=== PATIENT | female | born 1985 | race Two or more races ===

== ENCOUNTER → 2017-09-06 | Outpatient (CLI) | payer MEDICAID ==
--- NOTE | 2017-09-06 16:33 | WOMENS IMAGING REPORT ---
EXAM DESCRIPTION: BILAT DIAGNOSTIC MAMMO W/CAD; U/S BREAST UNILATERAL, COMPL COMPLETED DATE/TIME: 09/06/2017 10:09 am; 09/06/2017 10:51 am REASON FOR STUDY: LEFT BREAST LUMP; LT BREAST N63 N63.20 UNSPECIFIED LUMP IN THE LEFT BREAST, UNSPE CIFIED QUAD COMPARISON: None. TECHNIQUE: Standard craniocaudal and mediolateral oblique views of each breast recorded using digita l acquisition. Additional left breast 90 mediolateral view. Left breast cone compression in the CC and MLO orienta tions. Left breast ultrasound was also performed. LIMITATIONS: None. FINDINGS: RIGHT BREAST MASSES: No suspicious masses. CALCIFICATIONS: No new or suspicious calcifications. ARCHITECTURAL DISTORTION: None. DEVELOPING DENSITY: None. ASYMMETRY: None noted. OTHER: No other significant findings. LEFT BREAST MASSES: No suspicious masses. CALCIFICATIONS: No new or suspicious calcifications. ARCHITECTURAL DISTORTION: None. DEVELOPING DENSITY: None. ASYMMETRY: None noted. OTHER: No other significant finding. Read with the assistance of CAD: .[facility] - R2 Cenova Version 1.3 .[facility] Imaging - R2 Cenova Version 1.3 .[facility] - R2 Cenova Version 2.4 [place] [place]2 Cenova Version 2.4 .[facility] - R2 Conservator Artifacts Version 9.2 Left breast ultrasound: Ultrasound in the area of palpable abnormality demonstrates a 3 to 4 mm cyst at the 1 to 2 o'clock po sition. There are also 2 areas of increased echogenicity in the subcutaneous fat likely small lipoma is in the area of palpable abnormality. These measure 1.4 cm and 1.2 cm in size. No other significant findings in the left breast. No solid masses. No worrisome acoustic absorption . IMPRESSION: No mammographic evidence for malignancy right breast. No mammographic or sonographic evidence for malignancy left breast BREAST DENSITY: b. There are scattered areas of fibroglandular density. BIRAD: 2 Benign findings. RECOMMENDATION: RECOMMENDED FOLLOW UP: Patient should begin screening mammography/ tomosynthesis at age 40. Begin screening sooner if found to be at increased lifetime risk of breast cancer using the Caridad model SPECIFIC INTERVENTION/IMAGING/CONSULTATION RECOMMENDED:No additional intervention/ imaging/consultati on needed at this time. COMMUNICATION:Patient notified by letter COMMENT: The patient has been notified of the results by letter per SA requirements. Additional no tification policies are in place for contacting patient with suspicious or incomplete findings. Quality ID #[id number]: The [employer] recommends an annual screening mammogram for women aged 40 years or over. This facility utilizes a reminder system to ensure that all patients receive reminder letters, and/or direct phone calls for appointments. This includes reminders for routine scr eening mammograms, diagnostic mammograms, or other Breast Imaging Interventions when appropriate. Th is patient will be placed in the appropriate reminder system. The [employer] (ACR) has developed recommendations for screening MRI of the breast s in certain patient populations, to be used in conjunction with mammography. Breast MRI surveillanc e may be appropriate for women with more than 20% lifetime risk of developing breast cancer as deter mined by genetic testing, significant family history of the disease, or history of mantle radiation f or Hodgkins Disease. ACR Practice Guidelines 2008. TECHNICAL DOCUMENTATION: FINDING NUMBER: (1) ASSESSMENT: (1) JOB ID: [id number] [employer]- All Rights Reserved Reading location - IP/workstation name: [facility]
--- NOTE | 2017-09-06 16:33 | WOMENS IMAGING REPORT ---
EXAM DESCRIPTION: BILAT DIAGNOSTIC MAMMO W/CAD; U/S BREAST UNILATERAL, COMPL COMPLETED DATE/TIME: 09/06/2017 10:09 am; 09/06/2017 10:51 am REASON FOR STUDY: LEFT BREAST LUMP; LT BREAST N63 N63.20 UNSPECIFIED LUMP IN THE LEFT BREAST, UNSPE CIFIED QUAD COMPARISON: None. TECHNIQUE: Standard craniocaudal and mediolateral oblique views of each breast recorded using digita l acquisition. Additional left breast 90 mediolateral view. Left breast cone compression in the CC and MLO orienta tions. Left breast ultrasound was also performed. LIMITATIONS: None. FINDINGS: RIGHT BREAST MASSES: No suspicious masses. CALCIFICATIONS: No new or suspicious calcifications. ARCHITECTURAL DISTORTION: None. DEVELOPING DENSITY: None. ASYMMETRY: None noted. OTHER: No other significant findings. LEFT BREAST MASSES: No suspicious masses. CALCIFICATIONS: No new or suspicious calcifications. ARCHITECTURAL DISTORTION: None. DEVELOPING DENSITY: None. ASYMMETRY: None noted. OTHER: No other significant finding. Read with the assistance of CAD: .[facility] - R2 Cenova Version 1.3 .[facility] Imaging - R2 Cenova Version 1.3 .[facility] Imaging - R2 Cenova Version 2.4 .[facility] [place] R2 Cenova Version 2.4 .[facility] - R2 Bullet Lubricant Mixer Version 9.2 Left breast ultrasound: Ultrasound in the area of palpable abnormality demonstrates a 3 to 4 mm cyst at the 1 to 2 o'clock po sition. There are also 2 areas of increased echogenicity in the subcutaneous fat likely small lipoma is in the area of palpable abnormality. These measure 1.4 cm and 1.2 cm in size. No other significant findings in the left breast. No solid masses. No worrisome acoustic absorption . IMPRESSION: No mammographic evidence for malignancy right breast. No mammographic or sonographic evidence for malignancy left breast BREAST DENSITY: b. There are scattered areas of fibroglandular density. BIRAD: 2 Benign findings. RECOMMENDATION: RECOMMENDED FOLLOW UP: Patient should begin screening mammography/ tomosynthesis at age 40. Begin screening sooner if found to be at increased lifetime risk of breast cancer using the Caridad model SPECIFIC INTERVENTION/IMAGING/CONSULTATION RECOMMENDED:No additional intervention/ imaging/consultati on needed at this time. COMMUNICATION:Patient notified by letter COMMENT: The patient has been notified of the results by letter per SA requirements. Additional no tification policies are in place for contacting patient with suspicious or incomplete findings. Quality ID #[id number]: The [employer] recommends an annual screening mammogram for women aged 40 years or over. This facility utilizes a reminder system to ensure that all patients receive reminder letters, and/or direct phone calls for appointments. This includes reminders for routine scr eening mammograms, diagnostic mammograms, or other Breast Imaging Interventions when appropriate. Th is patient will be placed in the appropriate reminder system. The [employer] (ACR) has developed recommendations for screening MRI of the breast s in certain patient populations, to be used in conjunction with mammography. Breast MRI surveillanc e may be appropriate for women with more than 20% lifetime risk of developing breast cancer as deter mined by genetic testing, significant family history of the disease, or history of mantle radiation f or Hodgkins Disease. ACR Practice Guidelines 2008. TECHNICAL DOCUMENTATION: FINDING NUMBER: (1) ASSESSMENT: (1) JOB ID: [id number] [employer]- All Rights Reserved Reading location - IP/workstation name: [facility]
== END ==
LOC: WI 09:55
PROVIDERS: ATTEND Nurse Practitioner Family
DX: Z12.31 Encounter for screening mammogram for malignant neoplasm of breast (principal); N63.20 Unspecified lump in the left breast, unspecified quadrant
CPT/HCPCS: 76641; 77066

== ENCOUNTER 2019-05-17 11:56 | Emergency (ER) | payer MEDICAID ==
[2019-05-17 12:07] VITALS: BP 103/52
[2019-05-17] MEDS ORDERED: PSEUDOEPHEDRINE HCL 30 MG TABLET PO ONE (12:42)
[2019-05-17] MEDS ORDERED: GUAIFENESIN 600 MG TABLET.SA PO ONE (12:42)
[2019-05-17] MEDS ORDERED: LORATADINE 10 MG TABLET PO ONE (12:42)
--- NOTE | 2019-05-17 12:44 | ER Document Report ---
ED ENT - General Chief Complaint: Sinus Pain Stated Complaint: POSSIBLE SINUS INFECTION Time Seen by Provider: 05/17/19 12:39 Primary Care Provider: EUGENIA MURPHY FNP [Primary Care Provider] - Follow up as needed TRAVEL OUTSIDE OF THE [place] IN LAST 30 DAYS: No - Related Data Allergies/Adverse Reactions: codeine Allergy (Verified 05/17/19 12:39) Past Medical History - General Information source: Patient - Social History Smoking Status: Current Every Day Smoker Cigarette use (# per day): Yes - 2 to 3 cigarettes a day Smoking Education Provided: Yes - 4 minutes Frequency of alcohol use: None Drug Abuse: None Occupation: Mom Lives with: Family Family History: Reviewed & Not Pertinent Patient has suicidal ideation: No Patient has homicidal ideation: No - Past Medical History Cardiac Medical History: Reports: None Pulmonary Medical History: Reports: None EENT Medical History: Reports: None Neurological Medical History: Reports: None Endocrine Medical History: Reports: None Renal/ Medical History: Reports: None Malignancy Medical History: Reports: None GI Medical History: Reports: None Musculoskeletal Medical History: Reports None Skin Medical History: Reports None Psychiatric Medical History: Reports: None Traumatic Medical History: Reports: None Past Surgical History: Reports: Hx Nose Surgery - Septoplasty, Hx Tonsillectomy - Immunizations Immunizations up to date: Yes Hx Diphtheria, Pertussis, Tetanus Vaccination: Yes - 2018 History of Influenza Vaccine for 02/2019 - 07/2019 Season: No Review of Systems - Review of Systems Constitutional: No symptoms reported EENT: Ear pain, Nose congestion, Nose discharge, Sinus pressure, Sinus discharge Cardiovascular: No symptoms reported Respiratory: No symptoms reported Gastrointestinal: No symptoms reported Genitourinary: No symptoms reported Female Genitourinary: No symptoms reported Musculoskeletal: No symptoms reported Skin: No symptoms reported Hematologic/Lymphatic: No symptoms reported Neurological/Psychological: No symptoms reported -: Yes All other systems reviewed and negative Physical Exam - Vital signs Vitals: Temp Pulse Resp BP Pulse Ox 98.4 F 72 18 103/52 L 98 05/17/19 12:06 05/17/19 12:06 05/17/19 12:06 05/17/19 12:06 05/17/19 12:06 Interpretation: Normal - General General appearance: Appears well, Alert - HEENT Head: Normocephalic, Atraumatic Eyes: Normal Pupils: PERRL Ears: Normal External canal: Normal Tympanic membrane: Normal Sinus: Normal Nasal: Swelling Mouth/Lips: Normal Mucous membranes: Normal Pharynx: Post nasal drainage Neck: Normal - Respiratory Respiratory status: No respiratory distress Chest status: Nontender Breath sounds: Normal Chest palpation: Normal - Cardiovascular Rhythm: Regular Heart sounds: Normal auscultation Murmur: No - Abdominal Inspection: Normal Distension: No distension Bowel sounds: Normal Tenderness: Nontender Organomegaly: No organomegaly - Back Back: Normal, Nontender - Extremities General upper extremity: Normal inspection, Nontender, Normal color, Normal ROM, Normal temperature General lower extremity: Normal inspection, Nontender, Normal color, Normal ROM, Normal temperature, Normal weight bearing. No: Sanjiv's sign - Neurological Neuro grossly intact: Yes Cognition: Normal Orientation: AAOx4 Thuy Coma Scale Eye Opening: Spontaneous Thuy Coma Scale Verbal: Oriented Thuy Coma Scale Motor: Obeys Commands Thuy Coma Scale Total: 15 Speech: Normal Motor strength normal: LUE, RUE, LLE, RLE Sensory: Normal - Psychological Associated symptoms: Normal affect, Normal mood - Skin Skin Temperature: Warm Skin Moisture: Dry Skin Color: Normal Course - Re-evaluation Re-evalutation: 05/17/19 12:45 After performing a Medical Screening Examination, I estimate there is LOW risk for ACUTE CORONARY SYNDROME, RESPIRATORY FAILURE, SEPSIS OR MENINGITIS, thus I consider the discharge disposition reasonable. I have reevaluated this patient multiple times and no significant life threatening changes are noted. The patient and I have discussed the diagnosis and risks, and we agree with discharging home with close follow-up. We also discussed returning to the Emergency Department immediately if new or worsening symptoms occur. We have discussed the symptoms which are most concerning (e.g., changing or worsening pain, trouble swallowing or breathing, neck stiffness, fever) that necessitate immediate return. - Vital Signs Vital signs: Temp Pulse Resp BP Pulse Ox 98.4 F 72 18 103/52 L 98 05/17/19 12:06 05/17/19 12:06 05/17/19 12:06 05/17/19 12:06 05/17/19 12:06 Discharge - Discharge Clinical Impression: URI (upper respiratory infection) Qualifiers: URI type: unspecified viral URI Qualified Code(s): J06.9 - Acute upper respiratory infection, unspecified Condition: Stable Disposition: HOME, SELF-CARE Additional Instructions: UPPER RESPIRATORY ILLNESS: You have a viral infection of the respiratory passages -- a "cold." This common infection causes nasal congestion, drainage, and often sore throat and cough. It is highly contagious. The disease usually lasts about 10 to 14 days. There is no "cure" for the viral infection -- it must run its course. If there is a complication, such as bacterial infection in the nose, sinuses, middle ear, or bronchial tubes, antibiotics may be required. The antibiotics won't affect the virus. Drink plenty of fluids. A humidifier may help. An expectorant medication or decongestant may make you more comfortable. Use acetaminophen or ibuprofen for fever or aches. See the doctor if fever persists over two days, if there is any significant worsening of your symptoms, or if you simply fail to improve as expected. You were treated with Claritin 10 mg Sudafed 30 mg and you have been taken Mucinex 600 mg. These are all pxjq-kfb-yrcolqz medications for cough cold congestion. You do need to call the go to the pharmacist to get the Sudafed from behind the counter please get a little red pills they are more effective. He could also use Flonase which is olum-wij-njomsus 1 spray each nostril twice a day. He could also use salt soda solution gargles. These will help to remove the drainage from the back your throat. Chloraseptic spray was htsu-fjl-bivjwqn that will also help with your sore throat. Salt and soda solution gargle 1 quart of water 1 tablespoon of salt 1 teaspoon of baking soda Mixed 3 ingredients together and boil for 1 minute Placed in a covered quart jar Use 1/2 ounce of cold solution to gargle 3 times a day COUGH-SUPPRESSANT & EXPECTORANT MEDICATION: You are to use a cough medication as needed for relief of symptoms. This medicine is a combination of an expectorant (to make the mucous thinner and more easily "coughed up") and a cough suppressant (to reduce the frequency of coughing). The cough-suppressant medicine is related to narcotics. You may experience mild nausea and sleepiness. Some patients who are very sensitive to narcotics may have stomach pain from this medicine. Taking the medicine with food reduces these side effects. Do not drive or work with machinery until you know how this medicine affects you. The expectorant should have no side effects. Iodine-containing expectorants (such as organidin) should not be taken by persons with active thyroid disease unless approved by your doctor. Call the doctor if you develop shortness of breath, hives, rash, itching, lightheadedness, or severe nausea and vomiting. USE OF ACETAMINOPHEN (Tylenol): Acetaminophen may be taken for pain relief or fever control. It's much safer than aspirin, offering a wider range of "safe" dosages. It is safe during . Some brand names are Tylenol, Panadol, Datril, Anacin 3, Tempra, and Liquiprin. Acetaminophen can be repeated every four hours. The following are maximum recommended dosages: >89 pounds or adults 650 mg to 900 mg Acetaminophen can be repeated every four hours. Maximum dose not to exceed 4000 mg a day. SMOKING: If you smoke, you should stop smoking. The tar and chemicals in cigarette smoke are harmful. Smoking has been shown to cause: emphysema chronic bronchitis lung cancer mouth and throat cancer stomach and pancreas cancer premature aging defects In addition, smoking increases ear and lung infections in children of smokers. FOLLOW-UP CARE: If you have been referred to a physician for follow-up care, call the physicians office for an appointment as you were instructed or within the next two days. If you experience worsening or a significant change in your symptoms, notify the physician immediately or return to the Emergency Department at any time for re-evaluation. Forms: Smoking Cessation Education Referrals: EUGENIA MURPHY FNP [Primary Care Provider] - Follow up in 3-5 days
== END 2019-05-17 12:49 | disposition home or self-care (01) ==
LOC: ER 11:56
DX: J06.9 Acute upper respiratory infection, unspecified (principal); B97.89 Other viral agents as the cause of diseases classified elsewhere; J34.89 Other specified disorders of nose and nasal sinuses; R09.81 Nasal congestion; R09.82 Postnasal drip; H92.09 Otalgia, unspecified ear; F17.210 Nicotine dependence, cigarettes, uncomplicated; Z71.6 Tobacco abuse counseling; Z88.0 Allergy status to penicillin
CPT/HCPCS: 99406; 99282; J3490 ×2

== ENCOUNTER 2019-07-26 07:41 | Emergency (ER) | payer MEDICAID ==
[2019-07-26] MEDS ORDERED: PREDNISONE 20 MG TABLET PO ONE (10:27)
[2019-07-26] MEDS ORDERED: BENZONATATE 100 MG CAPSULE PO ONE (10:27)
[2019-07-26] MEDS ORDERED: AZITHROMYCIN 250 MG TABLET PO ONE (10:27)
--- NOTE | 2019-07-26 11:12 | ER Document Report ---
Entered by AGUSTINA SANCHEZ SCRIBE 07/26/19 1024 Acting as scribe for:PETRA BENITO MD ED General - General Chief Complaint: Sore Throat Stated Complaint: CONGESTION Time Seen by Provider: 07/26/19 10:03 Information source: Patient Notes: 33-year-old female presents to the emergency department with cold symptoms that began a couple weeks ago. Patient reports cough, congestion, green/yellow sputum, vomiting, headache, and left ear pain. Patient states that her symptoms are worse with laying down. TRAVEL OUTSIDE OF THE [place] IN LAST 30 DAYS: No - Related Data Allergies/Adverse Reactions: codeine Allergy (Verified 07/26/19 08:34) Past Medical History - General Information source: Patient - Social History Smoking Status: Current Some Day Smoker Cigarette use (# per day): Yes Chew tobacco use (# tins/day): No Smoking Education Provided: No Frequency of alcohol use: None Drug Abuse: None Lives with: Family Family History: Reviewed & Not Pertinent Patient has suicidal ideation: No Patient has homicidal ideation: Yes - Medical History Medical History: Negative Past Surgical History: Reports: Hx Nose Surgery - Rhinoseptoplasty, Hx Tonsillectomy - Immunizations Immunizations up to date: Yes Hx Diphtheria, Pertussis, Tetanus Vaccination: Yes - 2019 Review of Systems - Review of Systems Constitutional: No symptoms reported EENT: See HPI, Ear pain, Nose congestion Cardiovascular: No symptoms reported Respiratory: See HPI, Cough Gastrointestinal: See HPI, Vomiting Genitourinary: No symptoms reported Female Genitourinary: No symptoms reported Musculoskeletal: No symptoms reported Skin: No symptoms reported Hematologic/Lymphatic: No symptoms reported Neurological/Psychological: See HPI, Headaches -: Yes All other systems reviewed and negative Physical Exam - Vital signs Vitals: Temp Pulse Resp BP Pulse Ox 98.1 F 82 18 122/65 99 07/26/19 07:50 07/26/19 07:50 07/26/19 07:50 07/26/19 07:50 07/26/19 07:50 - Notes Notes: Physical Exam: General: Alert, appears well. Mildly obese. HEENT: Normocephalic. Atraumatic. PERRL. Extraocular movements intact. TMs are mildly retracted. Mild erythema in pharynx. Laryngitis. Neck: Supple. Non-tender. Respiratory: No respiratory distress. With cough mild rhonchi and no wheezing is heard bilaterally. Cardiovascular: Regular rate and rhythm. Abdominal: Normal Inspection. Non-tender. No distension. Normal Bowel Sounds. Back: No gross abnormalities. Extremities: Moves all four extremities. Upper extremities: Normal inspection. Normal ROM. Lower extremities: Normal inspection. No edema. Normal ROM. Neurological: Normal cognition. AAOx4. Normal speech. Psychological: Normal affect. Normal Mood. Skin: Warm. Dry. Normal color. Course - Vital Signs Vital signs: Temp Pulse Resp BP Pulse Ox 98.1 F 63 18 113/68 99 07/26/19 11:30 07/26/19 11:30 07/26/19 11:30 07/26/19 11:30 07/26/19 11:30 Discharge - Discharge Clinical Impression: Bronchitis, Laryngitis Sinusitis Qualifiers: Sinusitis location: unspecified location Chronicity: acute Recurrence: non- recurrent Qualified Code(s): J01.90 - Acute sinusitis, unspecified Condition: Stable Disposition: HOME, SELF-CARE Additional Instructions: Bronchitis You have acute bronchitis. This disease is an infection or inflammation of the air passageways in your lungs. Symptoms usually include cough, low grade fever, shortness of breath, and wheezing. The cough usually persists for a couple of weeks. Most cases of bronchitis get better without antibiotics. We prescribe antibiotics when we believe bacteria are damaging your airways, or if there's high risk the bronchitis will worsen into pneumonia. Increase your fluid intake. A cool mist humidifier may make your lungs more comfortable. An expectorant (cough medicine that loosens phlegm) can help. If you smoke, STOP!!! Recovery from bronchitis can be somewhat slow, but you should see improvement within a day or two. Repeated episodes of bronchitis may result in lung damage -- for example, chronic bronchitis, recurrent pneumonias, or emphysema. Call the doctor if you develop increasing fever, shortness of breath, chest pain, bloody sputum, or otherwise worsen. If you have not improved at all after several days, contact the physician. Sinusitis You have sinusitis, an infection of the sinus cavities of the face. The sinuses are air-filled chambers which open into the inside of the nose. Bacteria and pus fill a sinus, causing pain, drainage, and fever. Sinusitis is treated with antibiotics. Often, expectorants (to thin the sinus mucous) or decongestants (to reduce swelling) are prescribed as well. Healing requires seven to 10 days. Avoid chemical fumes, pollens, dusts, and smoke (especially cigarette smoke). Keep the air humidified in your bedroom and work area and take plenty of liquids by mouth. This condition can be serious if the infection spreads. If your symptoms worsen, or if you develop severe headache, high fever, stiff neck, or a rash, you must call the doctor or return for re-evaluation. Laryngitis You have laryngitis. This is an inflammation of the vocal cords which leads to inability to speak normally. Any irritation to the airway can cause laryngitis. Causes include virus infection, smoke inhalation, allergy, or even trauma due to excessive talking or shouting. Rest your voice. Any vibration of the vocal cords increases and prolongs the swelling. Humidity is helpful, especially cool mist. Avoid dust, chemical fumes, and smoke. Avoid decongestants and antihistamines -- these will make you worse. You can expect to recover completely in a few days. See the physician if new symptoms develop, such as high fever, productive cough, shortness of breath, or if you do not improve within a few days. Start the prednisone and Zithromax tomorrow as prescribed. You have had today's dose here in the emergency room. Take the Tessalon Perles as prescribed to help suppress your coughing. Additionally, taking the generic version of Delsym DM should be helpful. Drink plenty of fluids and get plenty of rest and sleep. Try to avoid talking as much as possible. Follow-up with your primary care provider if not improving. RETURN TO THE EMERGENCY ROOM IF ANY NEW OR WORSENING SYMPTOMS. Prescriptions: Prednisone [Deltasone 10 mg Tablet] 10 mg PO ASDIR PRN #21 tablet PRN Reason: Benzonatate [Tessalon Perles 100 mg Capsule] 100 mg PO ASDIR PRN #30 capsule PRN Reason: Azithromycin [Zithromax 250 mg Tablet] 250 mg PO DAILY #4 tablet Forms: Return to Work I personally performed the services described in the documentation, reviewed and edited the documentation which was dictated to the scribe in my presence, and it accurately records my words and actions.
[2019-07-26 11:51] VITALS: BP 113/68
== END 2019-07-26 12:09 | disposition home or self-care (01) ==
LOC: ER 07:41
DX: J40 Bronchitis, not specified as acute or chronic (principal); J04.0 Acute laryngitis; J01.90 Acute sinusitis, unspecified; R11.10 Vomiting, unspecified; R51 Headache; F17.210 Nicotine dependence, cigarettes, uncomplicated; Z88.6 Allergy status to analgesic agent
CPT/HCPCS: 99283; 87070; 87880; J3490; Q0144; J7512

== ENCOUNTER 2020-04-02 09:13 | Emergency (ER) | payer MEDICAID ==
--- NOTE | 2020-04-02 10:49 | RADIOLOGY REPORT (SQ) ---
EXAM DESCRIPTION: CT HEAD WITHOUT IMAGES COMPLETED DATE/TIME: 04/02/2020 10:05 am REASON FOR STUDY: facial paralysis left side COMPARISON: None. TECHNIQUE: Axial images acquired through the brain without intravenous contrast. Images reviewed wi th bone, brain and subdural windows. Additional sagittal and coronal reconstructions were generated. Images stored on PACS. All CT scanners at this facility use dose modulation, iterative reconstruction, and/or weight based d osing when appropriate to reduce radiation dose to as low as reasonably achievable (ALARA). [facility]: Dose Right [facility]: CareDose [facility]: Dose Right [facility]: Teradose 4D [facility]: [employer] RADIATION DOSE: CT Rad equipment meets quality standard of care and radiation dose reduction techniq ues were employed. CTDIvol: 53.2 mGy. DLP: 1070 mGy-cm. mGy. LIMITATIONS: None. FINDINGS: VENTRICLES: Normal size and contour. CEREBRUM: No masses. No hemorrhage. No midline shift. No evidence for acute infarction. Normal gra y/white matter differentiation. No areas of low density in the white matter. CEREBELLUM: No masses. No hemorrhage. No alteration of density. No evidence for acute infarction. EXTRAAXIAL SPACES: No fluid collections. No masses. ORBITS AND GLOBE: No intra- or extraconal masses. Normal contour of globe without masses. CALVARIUM: No fracture. PARANASAL SINUSES: No fluid or mucosal thickening. SOFT TISSUES: No mass or hematoma. OTHER: No other significant finding. IMPRESSION: NORMAL BRAIN CT WITHOUT CONTRAST. EVIDENCE OF ACUTE STROKE: NO. COMMENT: Quality ID # [id number]: Final reports with documentation of one or more dose reduction techniques (e.g., Automated exposure control, adjustment of the mA and/or kV according to patient size, use of iterative reconstruction technique) TECHNICAL DOCUMENTATION: JOB ID: [id number] 2010 [employer]- All Rights Reserved Reading location - IP/workstation name: [email or web address]
--- NOTE | 2020-04-02 11:43 | ER Document Report ---
ED General - General Chief Complaint: Facial Droop Stated Complaint: FACIAL NUMBNESS Time Seen by Provider: 04/02/20 09:46 Mode of Arrival: Ambulatory Information source: Patient TRAVEL OUTSIDE OF THE [place] IN LAST 30 DAYS: No - HPI Notes: Patient presents with some left facial weakness as well as some mild pain about the left side of the face. She states she has had some congestion and fatigue and myalgias over the last week or so. She denies any previous history of similar episodes. No trauma. No vomiting or diarrhea. No headache. She states when she woke up yesterday she noticed that she had trouble closing her eye and that her tongue "felt funny". Nothing has made his symptoms better or worse. They have been constant. - Related Data Allergies/Adverse Reactions: codeine Allergy (Verified 04/02/20 09:38) Past Medical History - General Information source: Patient - Social History Smoking Status: Current Every Day Smoker Chew tobacco use (# tins/day): No Frequency of alcohol use: None Drug Abuse: None Family History: Reviewed & Not Pertinent Past Surgical History: Reports: Hx Nose Surgery - Rhinoseptoplasty, Hx Tonsillectomy - Immunizations Immunizations up to date: Yes Hx Diphtheria, Pertussis, Tetanus Vaccination: Yes - 2019 Review of Systems - Review of Systems Constitutional: denies: Chills, Fever Cardiovascular: denies: Chest pain, Palpitations Respiratory: denies: Cough, Short of breath -: Yes All other systems reviewed and negative Physical Exam - Vital signs Vitals: Temp Pulse Resp BP Pulse Ox 98.4 F 70 18 119/73 99 04/02/20 09:18 04/02/20 09:18 04/02/20 09:18 04/02/20 09:18 04/02/20 09:18 Interpretation: Normal - General General appearance: Appears well, Alert - HEENT Head: Normocephalic, Atraumatic Eyes: Normal Pupils: PERRL - Respiratory Respiratory status: No respiratory distress Chest status: Nontender Breath sounds: Normal Chest palpation: Normal - Cardiovascular Rhythm: Regular Heart sounds: Normal auscultation Murmur: No - Abdominal Inspection: Normal Distension: No distension Bowel sounds: Normal Tenderness: Nontender Organomegaly: No organomegaly - Back Back: Normal, Nontender - Extremities General upper extremity: Normal inspection, Nontender, Normal color, Normal ROM, Normal temperature General lower extremity: Normal inspection, Nontender, Normal color, Normal ROM, Normal temperature, Normal weight bearing. No: Sanjiv's sign - Neurological Neuro grossly intact: Yes Cognition: Normal Orientation: AAOx4 [place] Coma Scale Eye Opening: Spontaneous Thuy Coma Scale Verbal: Oriented Thuy Coma Scale Motor: Obeys Commands [place] Coma Scale Total: 15 Speech: Normal Cranial nerves: Facial palsy - left. No: Forehead sparing, Gaze palsy Motor strength normal: LUE, RUE, LLE, RLE Sensory: Normal - Psychological Associated symptoms: Normal affect, Normal mood - Skin Skin Temperature: Warm Skin Moisture: Dry Skin Color: Normal Course - Re-evaluation Re-evalutation: 04/02/20 11:40 Patient has facial palsy consistent with Figueroa's palsy. Should be treated with steroids and follow-up with her family physician. She also be educated about eye protection. - Vital Signs Vital signs: Temp Pulse Resp BP Pulse Ox 98.4 F 70 18 119/73 99 04/02/20 09:18 04/02/20 09:18 04/02/20 09:18 04/02/20 09:18 04/02/20 09:18 - Diagnostic Test Radiology reviewed: Image reviewed, Reports reviewed Discharge - Discharge Clinical Impression: Figueroa's palsy Condition: Stable Disposition: HOME, SELF-CARE Instructions: Figueroa's Palsy ([facility]), Steroid Medication Additional Instructions: buy over the counter eye wetting solution use tape to keep eye closed at night Prescriptions: Prednisone [Deltasone 20 mg Tablet] 3 tab PO DAILY 7 Days #21 tablet Forms: Return to Work Referrals: YANNI BUSH MD [COMMUNITY BASED STAFF] - Follow up as needed
[2020-04-02 13:03] VITALS: BP 101/75
== END 2020-04-02 12:55 | disposition home or self-care (01) ==
LOC: ER 09:13
DX: G51.0 Bell's palsy (principal); R51.9 Headache, unspecified; R09.81 Nasal congestion; R53.83 Other fatigue; M79.10 Myalgia, unspecified site; F17.200 Nicotine dependence, unspecified, uncomplicated; Z88.8 Allergy status to other drugs, medicaments and biological substances
CPT/HCPCS: 70450; 99284

== ENCOUNTER 2020-04-11 07:32 | Emergency (ER) | payer MEDICAID ==
[2020-04-11] MEDS ORDERED: DEXAMETHASONE SOD PHOSPHATE INJ 4 MG/1 ML VIAL IM ONE (10:43)
--- NOTE | 2020-04-11 11:34 | ER Document Report ---
Entered by ORESTES ALBERT SCRIBE 04/11/20 1041 Acting as scribe for:SAIMA LEE MD ED Headache - General Chief Complaint: Headache Stated Complaint: LEFT SIDE HEAD PAIN Mode of Arrival: Ambulatory Information source: Patient Notes: This 34 year old female patient presents to the ED today with complaints of severe left-sided headache that started x2 days ago. Patient states that she was seen here on 04/02 and diagnosed with Figueroa's Palsy. She was started on a x7 day course of Prednisone which she has since finished. Denies difficulty swallowing. TRAVEL OUTSIDE OF THE [place] IN LAST 30 DAYS: No - Related Data Allergies/Adverse Reactions: codeine Allergy (Verified 04/02/20 09:38) Past Medical History - General Information source: Patient, [facility] Records - Social History Smoking Status: Current Every Day Smoker Smoking Education Provided: No Frequency of alcohol use: None Drug Abuse: None Family History: Reviewed & Not Pertinent Past Surgical History: Reports: Hx Nose Surgery - Rhinoseptoplasty, Hx Tonsillectomy - Immunizations Immunizations up to date: Yes Hx Diphtheria, Pertussis, Tetanus Vaccination: Yes - 2019 Review of Systems - Review of Systems Constitutional: No symptoms reported EENT: See HPI. denies: Difficulty swallowing Cardiovascular: No symptoms reported Respiratory: No symptoms reported Gastrointestinal: No symptoms reported Genitourinary: No symptoms reported Female Genitourinary: No symptoms reported Musculoskeletal: No symptoms reported Skin: No symptoms reported Hematologic/Lymphatic: No symptoms reported Neurological/Psychological: See HPI, Headaches -: Yes All other systems reviewed and negative Physical Exam - Vital signs Vitals: Temp Pulse Resp BP Pulse Ox 98.6 F 94 18 112/71 100 04/11/20 07:37 04/11/20 07:37 04/11/20 07:37 04/11/20 07:37 04/11/20 07:37 Interpretation: Normal - General General appearance: Alert - HEENT Head: Tenderness - Posterior auricular pain on the left side - Respiratory Respiratory status: No respiratory distress Chest status: Nontender Breath sounds: Normal Chest palpation: Normal - Cardiovascular Rhythm: Regular Heart sounds: Normal auscultation Murmur: No Friction rub: No Gallop: None auscultated - Abdominal Inspection: Normal Distension: No distension Bowel sounds: Normal Tenderness: Nontender - Abdomen soft Organomegaly: No organomegaly - Back Back: Normal, Nontender - Extremities General upper extremity: Normal inspection General lower extremity: Normal inspection. No: Edema - Neurological Orientation: AAOx4 Thuy Coma Scale Eye Opening: Spontaneous [place] Coma Scale Verbal: Oriented Thuy Coma Scale Motor: Obeys Commands Thuy Coma Scale Total: 15 Speech: Normal Cranial nerves: Facial palsy - smile asymmetric, Sensory deficit - decreased sensation to left side of face, Other - left-sided facial hemiparesis, left eye does not close, loss of taste on left side of tongue - Psychological Associated symptoms: Normal affect, Normal mood - Skin Skin Temperature: Warm Skin Moisture: Dry Skin Color: Normal Course - Re-evaluation Re-evalutation: 04/11/20 11:33 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 Patient has received an IM shot of Decadron 4 mg. Patient is given another round of steroids as well as additional gabapentin for her pain from her Figueroa's palsy. Patient notes pain in his scalp on the left side of her head. Also patient is placed on Valtrex and ibuprofen as needed for pain. - Vital Signs Vital signs: Temp Pulse Resp BP Pulse Ox 98.6 F 94 18 112/71 100 04/11/20 07:37 04/11/20 07:37 04/11/20 07:37 04/11/20 07:37 04/11/20 07:37 04/11/20 11:34 Vital signs stable Discharge - Discharge Clinical Impression: Figueroa's palsy Condition: Stable Disposition: HOME, SELF-CARE Instructions: Steroid Medication, Figueroa's Palsy ([facility]) Prescriptions: Gabapentin 300 mg PO TID PRN #30 capsule PRN Reason: For Pain Ibuprofen [Ibu] 600 mg PO TID PRN #21 tablet PRN Reason: Pain Scale Of 3 Methylprednisolone [Medrol Dosepack (4 mg/Tab) 21 Tab/Dosepak] 4 mg PO ASDIR PRN #21 tab.ds.pk PRN Reason: Valacyclovir HCl [Valtrex] 1,000 mg PO BID #14 tablet Forms: Return to Work I personally performed the services described in the documentation, reviewed and edited the documentation which was dictated to the scribe in my presence, and it accurately records my words and actions.
[2020-04-11 11:55] VITALS: BP 107/69
== END 2020-04-11 11:52 | disposition home or self-care (01) ==
LOC: ER 07:32
DX: G51.0 Bell's palsy (principal); R51.9 Headache, unspecified; F17.200 Nicotine dependence, unspecified, uncomplicated; Z88.8 Allergy status to other drugs, medicaments and biological substances
CPT/HCPCS: 99284; 96372; J1100